=== PATIENT | female | born 1985 | race Caucasian/White ===

== ENCOUNTER 2017-01-15 12:38 | Emergency (ER) | payer SELFPAY ==
[~2017-01-15] VITALS: Ht 152.4 cm; Wt 59.4 kg
[~2017-01-15 12:38] MED LIST: ANAPROX DS550 M1 PO; BACTRIM,SEPT1 TABLET PO; FLEXERIL10 MG PO; MOTRIN600 MG PO; NORCO 5/3251 TABLET PO; OXYCODONE HCL10 MG PO; PYRIDIUM100 MG PO; ULTRAM50 MG PO
[2017-01-15] MEDS ORDERED: LIDODERM 5% P1 PATCH TD (14:04)
[2017-01-15] MEDS ORDERED: FLEXERIL10 MG PO (14:04)
[2017-01-15] MEDS ORDERED: TRAMADOL HCL50 MG PO (14:04)
[2017-01-15] MEDS ORDERED: NAPROSYN500 MG PO (14:04)
[2017-01-15 14:15] VITALS: BP 109/60
== END 2017-01-15 14:17 | disposition home or self-care (01) ==
LOC: EME 12:38
DX: S39.012A Strain of muscle, fascia and tendon of lower back, initial encounter (principal); M25.562 Pain in left knee; X58.XXXA Exposure to other specified factors, initial encounter; Y93.E2 Activity, laundry; F17.200 Nicotine dependence, unspecified, uncomplicated
CPT/HCPCS: 99281; 99284; J1885

== ENCOUNTER 2017-08-06 20:04 | Emergency (ER) | payer SELFPAY ==
[~2017-08-06] VITALS: Ht 152.4 cm; Wt 62.6 kg
[~2017-08-06 20:04] MED LIST changes: +LIDODERM 5% P1 PATCH TD; +NAPROSYN500 MG PO; +TRAMADOL HCL50 MG PO
[2017-08-06] MEDS ORDERED: INDOCIN50 MG PO (20:54)
[2017-08-06] MEDS ORDERED: VALIUM5 MG PO (20:54)
[2017-08-06 21:08] VITALS: BP 133/83
== END 2017-08-06 21:08 | disposition home or self-care (01) ==
LOC: EXP 20:04 → EME 20:04 → EXP 21:08
DX: S16.1XXA Strain of muscle, fascia and tendon at neck level, initial encounter (principal); S46.812A Strain of other muscles, fascia and tendons at shoulder and upper arm level, left arm, initial encounter; X58.XXXA Exposure to other specified factors, initial encounter; F17.200 Nicotine dependence, unspecified, uncomplicated
CPT/HCPCS: 99281; 99284

== ENCOUNTER 2017-09-12 11:13 | Emergency (ER) | payer SELFPAY ==
[~2017-09-12] VITALS: Ht 152.4 cm; Wt 61.9 kg
[~2017-09-12 11:13] MED LIST changes: +INDOCIN50 MG PO; +VALIUM5 MG PO
[2017-09-12] MEDS ORDERED: FLEXERIL10 MG PO (13:45)
[2017-09-12] MEDS ORDERED: NAPROXEN500 MG PO (13:45)
[2017-09-12] MEDS ORDERED: LIDODERM 5% P1 PATCH TD (13:45)
[2017-09-12 14:08] VITALS: BP 94/67
== END 2017-09-12 14:09 | disposition home or self-care (01) ==
LOC: EME 11:13
DX: M54.42 Lumbago with sciatica, left side (principal); S30.0XXA Contusion of lower back and pelvis, initial encounter; W10.9XXA Fall (on) (from) unspecified stairs and steps, initial encounter
CPT/HCPCS: 72100; 72220; 99281; 99284; J1885

== ENCOUNTER 2017-10-07 17:28 | Emergency (ER) | payer SELFPAY ==
[~2017-10-07] VITALS: Ht 152.4 cm; Wt 60.3 kg
[~2017-10-07 17:28] MED LIST changes: +NAPROXEN500 MG PO
[2017-10-07 18:56] LABS: APPEARANCE SL.HAZY ((CLEAR)); BILIRUBIN NEGATIVE; BLOOD SMALL; COLOR YELLOW ((YELLOW)); GLUCOSE (STRIP) NEGATIVE; KETONES NEGATIVE; LEUKOCYTES SMALL; NITRITE NEGATIVE; PROTEIN (STRIP) NEGATIVE; SPECIFIC GRAVITY 1.006 (1.000-1.030)
[2017-10-07 19:01] LABS: HEMATOCRIT 36.8 % (36.0-46.0); HEMOGLOBIN 13.2 G/DL (11.9-15.5); MCH 33.5 PG (29.0-34.0); MCHC 35.9 G/DL (30.0-36.0); MCV 93.4 FL (83-99); PLATELET COUNT 224 K/uL (156-360); RBC DIS.WIDTH-CV 11.8 % (11.8-14.6); RED BLOOD COUNT 3.94 M/uL (3.80-5.20); WHITE BLOOD COUNT 6.5 K/uL (4.1-10.2)
[2017-10-07 19:11] LABS: CHLORIDE 104 mEq/L (99-109); POTASSIUM 3.3 mEq/L (3.7-5.4); SODIUM 139 mEq/L (136-147)
[2017-10-07 19:12] LABS: GLUCOSE 90 mg/dL (70-99)
[2017-10-07 19:16] LABS: CREATININE 0.8 mg/dL (0.6-1.3); GFR ESTIMATE (CALCULATED) > 59 mL/min/
[2017-10-07 19:17] LABS: UREA NITROGEN (BUN) 6 mg/dL (9-23)
[2017-10-07 19:25] LABS: QUANTITATIVE HCG < 4.0 MIU/ML
[2017-10-07 19:28] LABS: BACTERIA 1+ /HPF; EPITHELIAL CELLS 2+ /HPF; MUCUS NONE SEEN /LPF; RED BLOOD CELLS 0-5 /HPF (0-5); UCUL ADDED? YES
[2017-10-07] MEDS ORDERED: KEFLEX500 MG PO (20:47)
[2017-10-07] MEDS ORDERED: PYRIDIUM200 MG PO (20:47)
[2017-10-07 20:48] VITALS: BP 122/82
== END 2017-10-07 20:50 | disposition home or self-care (01) ==
LOC: EME 17:28
DX: N39.0 Urinary tract infection, site not specified (principal); Z90.49 Acquired absence of other specified parts of digestive tract
CPT/HCPCS: 74176; 80048; 81003; 84702; 85027; 87086; 99281; 99284; J1885

== ENCOUNTER 2018-01-16 13:03 | Emergency (ER) | payer SELFPAY ==
[~2018-01-16] VITALS: Ht 152.4 cm; Wt 63.1 kg
[~2018-01-16 13:03] MED LIST changes: +KEFLEX500 MG PO; +PYRIDIUM200 MG PO
[2018-01-16] MEDS ORDERED: FLEXERIL10 MG PO (14:49)
[2018-01-16 15:51] VITALS: BP 141/74
== END 2018-01-16 15:53 | disposition home or self-care (01) ==
LOC: EME 13:03
DX: M54.5 Low back pain (principal); M79.7 Fibromyalgia; F17.200 Nicotine dependence, unspecified, uncomplicated; Z90.49 Acquired absence of other specified parts of digestive tract
CPT/HCPCS: 99281; 99283; J1885